=== PATIENT | female | born 1995 ===

== ENCOUNTER 2018-05-26 13:54 | Inpatient (IN) | payer OTHER ==
[~2018-05-26] VITALS: Ht 165.1 cm; Wt 68.9 kg
[2018-05-27] MEDS ORDERED: PRENATABS RX T1 EACH PO (17:49)
== END 2018-05-28 15:08 | disposition home or self-care (01) | DRG 923 ==
LOC: OBS/DEL 13:54 → LDR 13:56 → OBS/DEL 16:09 → LDR 05-27 15:24
PROC: 4A1HXCZ Monitoring of Products of Conception, Cardiac Rate, External Approach (ICD-10-PCS; principal; 2018-05-27)
DX: Z04.3 Encounter for examination and observation following other accident (principal); O47.03 False labor before 37 completed weeks of gestation, third trimester

== ENCOUNTER 2018-06-17 16:37 | Inpatient (IN) | payer OTHER ==
[~2018-06-17] VITALS: Ht 162.6 cm; Wt 3.6 kg
[~2018-06-17 16:37] MED LIST: PRENATABS RX T1 EACH PO
== END 2018-06-21 13:02 | disposition home or self-care, planned readmission (81) | DRG 766 ==
LOC: LDR 16:37 → OB/GYN 06-19 12:31
PROVIDERS: Obstetrics & Gynecology Obstetrics
PROC: 4A1HXCZ Monitoring of Products of Conception, Cardiac Rate, External Approach (ICD-10-PCS; 2018-06-17)
PROC: BY4FZZZ Ultrasonography of Third Trimester, Single Fetus (ICD-10-PCS; 2018-06-17)
PROC: 4A033R1 Measurement of Arterial Saturation, Peripheral, Percutaneous Approach (ICD-10-PCS; 2018-06-18)
PROC: 10D00Z1 Extraction of Products of Conception, Low, Open Approach (ICD-10-PCS; principal; 2018-06-18 14:00)
DX: O11.3 Pre-existing hypertension with pre-eclampsia, third trimester (principal); Z3A.39 39 weeks gestation of pregnancy; Z37.0 Single live birth